=== PATIENT | female | born 1995 | race Caucasian/White ===

== ENCOUNTER → 2022-04-04 14:01 | Outpatient (BNVA) | payer OTHER, SELFPAY | PROVIDERS: Family Provider Nurse Practitioner Family; PCP Family Medicine; Visit Provider Family Medicine | DX: F32.0 Major depressive disorder, single episode, mild (principal); L70.9 Acne, unspecified; F51.5 Nightmare disorder; Z30.9 Encounter for contraceptive management, unspecified | CPT/HCPCS: 80053; 85025 ==

== ENCOUNTER 2023-11-10 00:08 | Emergency (ER) | payer OTHER, SELFPAY ==
[2023-11-10 00:10] VITALS: BP 141/95; PULSE 100; RESP 16; TEMP 36.9; O2SAT 98; BMI 18.8
[2023-11-10 00:15] VITALS: BP 141/95; PULSE 91; O2SAT 99
--- NOTE | 2023-11-10 01:13 | ED_ITS ---
HPI - Eye Problem General: Chief complaint: Eye Problems Stated complaint: Left eye Pain Time Seen by Provider: 11/10/23 00:20 History of Present Illness: 28-year-old female presenting with right eye irritation, swelling to the lateral portion of the right eye, and some periorbital swelling. She notes that this happened suddenly while at home. She has no other symptoms. No fever. No cough. No rash or itching. She does not know if she got something in her eye or not. She was wearing contacts at the time, now her contact is out. Related Data Previous Rx's Medication Instructions Recorded loratadine 10 mg tablet 10 mg PO DAILY PRN allergy 02/05/22 symptoms #30 tabs fluticasone propionate 50 1 spray intranasal DAILY PRN nasal 11/15/22 mcg/actuation nasal congestion #16 grams spray,suspension (Flonase Allergy Relief) drospirenone 3 mg-ethinyl 1 tab PO DAILY #84 tabs 07/11/23 estradiol 0.02 mg tablet (Jamil (28)) escitalopram oxalate 20 mg tablet 20 mg PO DAILY #90 tabs 08/15/23 spironolactone 100 mg tablet See Rx Instructions .Route 08/27/23 .COMPLEX #90 tabs olopatadine 0.1 % eye drops 1 drp ophthalmic (eye) BID #5 mL 11/10/23 tobramycin 0.3 %-dexamethasone 0.1 1 drp ophthalmic (eye) Q6H 5 days 11/10/23 % eye drops,suspension #2.5 mL Allergies Allergy/AdvReac Type Severity Reaction Status Date / Time Tree nuts AdvReac Intermediate itchy Uncoded 08/15/23 14:27 throat PFSH ED PFSH: Medical History Psychiatric care Nasal congestion with rhinorrhea Acne Allergic rhinitis due to allergen Family History Mother Hypertension Father Psychiatric illness anxiety CAD (coronary artery disease) Other Stroke Denies family history of Diabetes Clotting disorder Dementia Hyperlipidemia Chronic kidney disease (CKD) Anesthesia complication Bleeding disorder Lung disease Cancer Social History Smoking and tobacco/nicotine status: never used tobacco/nicotine Alcohol intake: never Substance/Drug Use: never Lives independently: Yes Marital status: Single Number of children: 0 Current occupational status: employed 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 Current gender identity: Female Jessie/Yarsani: [employer] Special jessie needs: No Agree to transfusion: Yes Physical Exam Const: COMMON NORMALS: no acute distress GENERAL APPEARANCE: cooperative; not ill appearing ORIENTATION/CONSCIOUSNESS: Yes awake HENMT: COMMON NORMALS: normocephalic and Normal external nose present HEAD & SCALP: normocephalic FACE & SINUS: edema on the right (Mild) periorbital; no ecchymosis NOSE: Normal external nose present and Normal nares present Eye: COMMON NORMALS: Equal, round and reactive pupils present and EOMs intact bilaterally VISUAL ACUITY: No near vision loss and No distant vision loss ALIGNMENT: Yes alignment normal EYELID: eyelid abnormality (Mild) right upper eyelid swelling and right lower eyelid swelling CONJUNCTIVA: Yes conjunctival abnormal positive right conjunctival chemosis and conjunctival injection; without discharge and without subconjunctival hemmorhages CORNEA: Yes corneas normal and fluorescein used PUPIL: Yes Equal, round and reactive pupils present Course Vital Signs: Vital signs: Vital Signs Temperature 98.4 F 11/10/23 00:10 Pulse Rate 91 11/10/23 00:15 Respiratory Rate 16 11/10/23 00:10 Blood Pressure 141/95 11/10/23 00:15 Pulse Oximetry 99 11/10/23 00:15 Oxygen Delivery Me thod Room Air 11/10/23 00:15 MDM - Eye Problem Medical Decision Making Conjunctival swelling, irritation. No foreign body on fluorescein exam. Likely allergic. She will be placed on steroid?antibiotic eyedrop as well as antihistamine. She will return for any worsening symptoms. Discussed leaving her contacts out until her eyes normal. Ophthalmology follow-up. No radiology studies performed this visit Discharge Plan Discharge Patient Disposition: Home Clinical Impression: Acute allergic conjunctivitis Condition: Stable Prescriptions: New tobramycin-dexamethasone 0.3-0.1 % drops,suspension 1 drp ophthalmic (eye) Q6H 5 Days Qty: 2.5 0RF olopatadine 0.1 % drops 1 drp ophthalmic (eye) BID Qty: 5 0RF Rx Instructions: separate doses by at least 6-8 hours No Action loratadine 10 mg tablet 10 mg PO DAILY PRN (Reason: allergy symptoms) Qty: 30 3RF fluticasone propionate [Flonase Allergy Relief] 50 mcg/actuation spray,suspension 1 spray intranasal DAILY PRN (Reason: nasal congestion) Qty: 16 0RF Rx Instructions: administer into each nostril escitalopram oxalate 20 mg tablet 20 mg PO DAILY Qty: 90 2RF drospirenone-ethinyl estradiol [Katelyniel (28)] 3-0.02 mg tablet 1 tab PO DAILY Qty: 84 1RF spironolactone 100 mg tablet See Rx Instructions .ROUTE .COMPLEX Qty: 90 1RF Dose Instruction: TAKE ONE TABLET BY MOUTH EVERY DAY IN THE MORNING Rx Instructions: TAKE ONE TABLET BY MOUTH EVERY DAY IN THE MORNING Discharge Orders: Discharge ED (Routine); Ordered 11/10/23 Ordered By: Juliano Nugent Referrals: Erasmo Aquino [Physician] - 1-3 days Heladio Akbar MD [Primary Care Provider] - Patient Instructions: Conjunctivitis (ED), Opioid Safety, Pain Management Activity Restrictions/Additional Instructions: Use the tobramycin?dexamethasone eyedrops every 6 hours while awake for the first 5 days or so. Use the Patanol eyedrops twice daily. Taking an antihistamine by mouth such as Benadryl may help with periorbital swelling (around the eye). Return for increasing swelling despite treatment, blurry vision, fever, worsening eye pain, other concerning symptoms. Call ophthalmology in the morning for a follow-up appointment. 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
[2023-11-10 01:17] VITALS: BP 121/85; PULSE 92; O2SAT 97
[2023-11-10] MEDS: tetracaine 0.5% Op Soln 4 mL Btl 1 DROP EYE-RIGHT (01:17)
[2023-11-10] MEDS: fluorescein 1 mg Strip EYE-RIGHT (01:17)
== END 2023-11-10 01:12 | disposition home or self-care (01) ==
PROVIDERS: Emergency Provider Emergency Medicine; PCP Family Medicine
DX: H10.11 Acute atopic conjunctivitis, right eye (principal)
CPT/HCPCS: 80053; 82306; 82607; 82728; 83550; 84439; 84443; 85025; 86376; 99283

== ENCOUNTER → 2024-02-11 10:56 | Outpatient (BNVA) | payer OTHER, SELFPAY | PROVIDERS: PCP Family Medicine; Visit Provider Nurse Practitioner Family | DX: J02.9 Acute pharyngitis, unspecified (principal); J02.0 Streptococcal pharyngitis | CPT/HCPCS: 87880 ==

== ENCOUNTER → 2024-02-26 10:58 | Outpatient (BNVA) | payer OTHER, SELFPAY | PROVIDERS: PCP Family Medicine; Visit Provider Nurse Practitioner | DX: J02.9 Acute pharyngitis, unspecified (principal) | CPT/HCPCS: 87880 ==